=== PATIENT | female | born 1980 ===

== ENCOUNTER 2017-09-17 16:38 | Emergency (ER) | payer OTHER ==
[2016-07-03 22:43] VITALS: BMI 29.5
--- NOTE | 2017-09-17 21:51 | OBHP ---
Datetime: 09/17/2017 21:32 IP Adm Impression: , intrauterine ; No Active Labor; Intact Membranes IP Admit Plan: Observation/Evaluation; Discharge home Admit Comment, IP Provider: Patient's cervical exam performed at approximately 1700 hours 32 y.o. P1, LMP 02/19/17, STEFAN 11/26/17, EGA 30 weeks, c/o abdominal tightenig and worsening pelvic p ressure, throughout the day while at work on _D. (+) AFM;denies LOF, VB. Last had sexual intercourse 09/12/17. care: Dr. Lurdes Anthony; no issues to date P Ob: 07/05/16. 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 . 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 No known fam h/o cancer P.E.: as above. WD in NAD. Awake, alert, oriented to time, person and place. Pleasant and cooperat hodan Assessment: 32 y.o P1, 30 weeks; dehydration. Category 1 tracing. Clinically stable. Plan: 1) Discharge home 2) Reviewed S/S PTL 3) Resume p.o. intake of water to the order of half her weight in ounces daily 4) Follow up with Dr. Carrington, Doreen 09/18/17 - as per, and discussed with, Dr. Carrington Pelvic Type - PN: Adequate Extremities - PN: Normal Abdomen - PN: Normal Back - PN: Normal Breast - PN: Not Done Lungs - PN: Normal Heart - PN: Normal Thyroid - PN: Not Done Neurologic - PN: Normal HEENT - PN: Normal General - PN: Normal FHR - Baseline A Provider: 135 Contraction Comments Provider: none Comments, ACOG Physical Exam: Abdomen: Sof.t Gravie. Non tender in all quadrants All other systems reviewed and are negative Gestation - Est Wks by US: 30.0 EGA AdmitDate IP: 30.0 IP Chief Complaint: Other NICHD Variability Prov Fetus A: Moderate 6-25bpm NICHD Accel Fetus A IP Provider: 15X15 FHR Category Provider Fetus A: Category I NICHD Decel Fetus A IP Provider: None Dilatation, Provider: 0 Effacement, Provider: long Station, Provider: N/A Genitourinary Exam: Normal DTRs - PN: Not Done
[2017-09-17 22:55] VITALS: BP 110/72; PULSE 81
== END 2017-09-17 18:42 | disposition home or self-care (01) ==
LOC: C.EROB 16:38
DX: O26.893 Other specified pregnancy related conditions, third trimester (principal); E86.0 Dehydration; Z3A.30 30 weeks gestation of pregnancy

== ENCOUNTER 2017-10-30 17:55 | Observation (INO) | payer OTHER ==
[2016-07-03 22:43] VITALS: BMI 29.5
[2017-10-31 08:59] LABS: BASO % 0.3 % (0.0-2.0); EOS % 0.5 % (0.0-4.0); LYMPH # 2.4 K/uL (1.0-4.3); LYMPH % 26.2 % (20.0-40.0); MEAN CELL VOLUME 84.9 fL (81.0-99.0); MEAN CORPUSCULAR HEMOGLOBIN 29.7 pg (27.0-31.0); MEAN PLATELET VOLUME 8.5 fL (7.2-11.7); MONO # 0.6 K/uL (0.0-0.8); MONO % 6.1 % (0.0-10.0); NEUT # 6.2 K/uL (1.8-7.0); NEUT % 66.9 % (50.0-75.0); NRBC % 0.1 % (0.0-2.0); RBC 4.38 Mil/uL (3.80-5.20); RED CELL DISTRIBUTION WIDTH 13.3 % (11.5-14.5); WHITE BLOOD COUNT 9.2 K/uL (4.8-10.8)
[2017-10-31 09:05] LABS: SQUAMOUS EPITHIAL 4 /hpf (0-5); URINE BACTERIA RARE (<OCC); URINE BILIRUBIN NEGATIVE (NEGATIVE); URINE BLOOD NEGATIVE (NEGATIVE); URINE CALCIUM OXALATE CRYSTALS OCC /hpf (<OCC); URINE CLARITY Clear (Clear); URINE COLOR Yellow (YELLOW); URINE GLUCOSE (UA) 3+ mg/dL (Normal); URINE LEUKOCYTE ESTERASE NEG Leu/uL (Negative); URINE NITRATE NEGATIVE (NEGATIVE); URINE PROTEIN NEGATIVE (NEGATIVE); URINE UROBILINOGEN NORMAL mg/dL (0.2-1.0)
[2017-10-31 09:39] LABS: HEPATITIS B SURFACE AG Negative (NEGATIVE)
[2017-10-31 09:44] LABS: HEPATITIS A IGM NEGATIVE (NEGATIVE); HEPATITIS B CORE AB NEGATIVE (NEGATIVE)
[2017-10-31 09:56] LABS: HEPATITIS C ANTIBODY NEGATIVE (NEGATIVE)
--- NOTE | 2017-10-31 13:31 | OBHP ---
Datetime: 10/30/2017 18:48 IP Adm Impression: , intrauterine ; No Active Labor IP Chief Complaint Other: Decreased MAYCOL on Ultrasound IP Adm Impression Other: Oligohydramnios IP Admit Plan: Observation/Evaluation IP Admit Plan Other: Prolonged monitoring Admit Comment, IP Provider: Patient is a 37 year old at 36 weeks and 1 day with STEFAN ( 8) and LMP (02/19/17) who was sent to the clinic by her provider due to BPP score (6/8) with decrease MAYCOL and decrease movement. Patient denies leakage of fluid, vaginal bleeding and abnormal vagin al discharge. 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 Stable, Afebrile. 2. CEFM 3. Speculum exam and nitrazine test 4. Admit for prolonged observation 5. BPP in the morning 6. Plans discussed with attending . Pt was seen and evaluated with the resident and I agree with the above Extremities - PN: Normal Abdomen - PN: Normal Lungs - PN: Normal Heart - PN: Normal General - PN: Normal Presentation-Admit: Vertex FHR - Baseline A Provider: 140 Membranes, Provider: Intact Contraction Comments Provider: irregular Comments, ACOG Physical Exam: Gen: NAD Cardio: RRR, normal S1, S2 Pulm: CTA bilaterally Abdomen: Soft, Gravid Ext: No cyanosis, no clubbing and no edema EFM: FHR: 140, + ACCELS TOCO: None Gestation - Est Wks by US: 36.1 Pool Provider: Negative Nitrazine Provider: Negative Ferning Provider: Negative EGA AdmitDate IP: 36.1 Vital Signs Provider: Reviewed; Within Normal Limits IP Chief Complaint: Decreased movement; Other NICHD Variability Prov Fetus A: Moderate 6-25bpm NICHD Accel Fetus A IP Provider: 15X15 NICHD Decel Fetus A IP Provider: None Dilatation, Provider: 0 Effacement, Provider: 0 Station, Provider: -3
== END 2017-10-31 10:25 | disposition home or self-care (01) ==
LOC: C.EROB 17:55 → C.4D 21:56
PROVIDERS: ADMIT Obstetrics & Gynecology; ATTEND Obstetrics & Gynecology
DX: O36.8190 Decreased fetal movements, unspecified trimester, not applicable or unspecified (principal); O41.00X0 Oligohydramnios, unspecified trimester, not applicable or unspecified; Z83.3 Family history of diabetes mellitus
CPT/HCPCS: 80074; 81001; 85025; 86592; 86703; 87081; 87491; 87591; G0378

== ENCOUNTER 2017-11-01 13:05 | Emergency (ER) | payer OTHER ==
[2016-07-03 22:43] VITALS: BMI 29.5
== END 2017-11-01 13:25 | disposition home or self-care (01) ==
LOC: C.EROB 13:05
DX: Z36.9 Encounter for antenatal screening, unspecified (principal); Z3A.36 36 weeks gestation of pregnancy

== ENCOUNTER 2017-11-02 16:31 | Emergency (ER) | payer OTHER ==
[2016-07-03 22:43] VITALS: BMI 29.5
[2017-11-02 21:07] VITALS: BP 116/73; PULSE 89; O2SAT 96
== END 2017-11-02 16:59 | disposition home or self-care (01) ==
LOC: C.EROB 16:31
DX: Z36.9 Encounter for antenatal screening, unspecified (principal); Z3A.36 36 weeks gestation of pregnancy

== ENCOUNTER 2017-11-04 17:45 | Emergency (ER) | payer OTHER ==
[2016-07-03 22:43] VITALS: BMI 29.5
--- NOTE | 2017-11-04 19:49 | OBHP ---
Datetime: 11/04/2017 19:47 IP Adm Impression: , intrauterine IP Adm Impression Other: nst reactive IP Admit Plan: Discharge home Admit Comment, IP Provider: patient here for nst for hx of decreased movement NST reactive patient feels the baby move now follow up in am in clinic Extremities - PN: Normal Abdomen - PN: Normal Back - PN: Normal Lungs - PN: Normal Heart - PN: Normal Neurologic - PN: Normal General - PN: Normal EGA AdmitDate IP: 36.6 Vital Signs Provider: Reviewed; Within Normal Limits IP Chief Complaint: Decreased movement FHR Category Provider Fetus A: Category I Datetime: 11/02/2017 16:52 IP Chief Complaint Other: NST FHR - Baseline A Provider: 135 Contraction Comments Provider: none IP Hx Assessment: The History has been Reviewed and is Current NICHD Variability Prov Fetus A: Moderate 6-25bpm NICHD Accel Fetus A IP Provider: 15X15 NICHD Decel Fetus A IP Provider: None
[2017-11-04 23:44] VITALS: PULSE 92; O2SAT 98
== END 2017-11-04 18:30 | disposition home or self-care (01) ==
LOC: C.EROB 17:45
DX: Z36.89 Encounter for other specified antenatal screening (principal)

== ENCOUNTER 2017-11-05 14:19 | Emergency (ER) | payer OTHER ==
[2017-11-05 15:09] VITALS: BMI 30.7
--- NOTE | 2017-11-05 15:30 | OBHP ---
Datetime: 11/05/2017 15:26 IP Adm Impression: Term, intrauterine Admit Comment, IP Provider: at 37weeks came with dec movemen. pt has been followed for lo w george,no ctxws, vb, lof+fm obhx 1 x pmh den med pnv all nkda psh de soch de ve /-2 a/p at 37weeks oligo/dec fm nst bpp cont markus and efm cont close observation Pelvic Type - PN: Adequate Extremities - PN: Normal Abdomen - PN: Normal Back - PN: Normal Breast - PN: Normal Lungs - PN: Normal Heart - PN: Normal Thyroid - PN: Normal Neurologic - PN: Normal HEENT - PN: Normal General - PN: Normal FHR - Baseline A Provider: 120 Contraction Comments Provider: irrg IP Hx Assessment: The History has been Reviewed and is Current EGA AdmitDate IP: 37.0 Vital Signs Provider: Reviewed; Within Normal Limits IP Chief Complaint: Decreased movement NICHD Variability Prov Fetus A: Moderate 6-25bpm NICHD Accel Fetus A IP Provider: 15X15 FHR Category Provider Fetus A: Category I Dilatation, Provider: 2 Effacement, Provider: 60 Station, Provider: -2 Genitourinary Exam: Normal DTRs - PN: Normal
--- NOTE | 2017-11-05 16:18 | US ---
Indication: dec fm/low fluid OB limited/biophysical profile Comparison: None available. Technique: Real-time ultrasound was performed through the pelvis. Findings: There is a single living fetus in cephalic presentation. Posterior placenta. The placenta is not previa. There are no adnexal masses or cysts evident. Cervix length measures approximately 4.1 cm. Measurements and calculations: Fetus has a composite sonographic age of 35 weeks 4 days. This calculation is based on the biparietal diameter, head circumference, abdominal circumference, and femur length. Estimated heart rate 123.5 beats per min. MAYCOL: 8.2 cm, low normal. Estimated weight 2745 g 411.8 g Biophysical profile: movements 2/2 breathing 2/2 tone 2/2 Amniotic fluid 2/2 Total score impression: 05/13 Impression: Single living fetus with a composite sonographic age of 35 weeks 4 days. Estimated heart rate 123.5 beats per min. MAYCOL: 8.2 cm, low normal. Biophysical profile of 8 out of 8.
--- NOTE | 2017-11-05 16:20 | OBDCSUM ---
Datetime: 11/04/2017 18:24 Discharge Comment, Provider: dc home labor ins given pk hyr f/u pmd in 1-2 days Discharge Diagnosis Prov Other: 37week ded fm nst oligo
[2017-11-05 20:47] VITALS: BP 114/72; PULSE 90; TEMP 97.5
--- NOTE | 2017-11-06 13:48 | OBHP ---
Datetime: 11/05/2017 15:26 Admit Comment, IP Provider: at 37weeks came with dec movemen. pt has been followed for lo w george,no ctxws, vb, lof+fm obhx 1 x pmh den med pnv all nkda psh de soch de ve 60/-2 a/p at 37weeks oligo/dec fm nst bpp cont markus and efm cont close observation 16.20 nst reative sono bpp 8 george 8.16 plan dc home labor ins given pk hyr f/u pmd in 1-2 days EGA AdmitDate IP: 37.0
== END 2017-11-05 16:44 | disposition home or self-care (01) ==
LOC: C.EROB 14:19
DX: O36.8130 Decreased fetal movements, third trimester, not applicable or unspecified (principal); Z3A.37 37 weeks gestation of pregnancy

== ENCOUNTER 2017-11-11 18:35 | Emergency (ER) | payer OTHER ==
--- NOTE | 2017-11-11 21:20 | OBHP ---
Datetime: 11/11/2017 21:10 IP Adm Impression Other: nst reactive IP Admit Plan: Discharge home Admit Comment, IP Provider: patient here for nst for hx of decreased movement NST reactive bpp done in offiec today and normal as per patient patient feels the baby move now follow up in am in clinic patient given labor precautions Extremities - PN: Normal Lungs - PN: Normal Heart - PN: Normal General - PN: Normal EGA AdmitDate IP: 37.6 Vital Signs Provider: Reviewed IP Chief Complaint: Decreased movement FHR Category Provider Fetus A: Category I
[2017-11-11 23:13] VITALS: PULSE 96; TEMP 97.2; O2SAT 95
== END 2017-11-11 19:10 | disposition home or self-care (01) ==
LOC: C.EROB 18:35
DX: Z36.89 Encounter for other specified antenatal screening (principal)

== ENCOUNTER 2017-11-25 11:50 | Inpatient (IN) | payer OTHER ==
[2017-11-25] MEDS ORDERED: Lactated Ringer's 1,000 ML IV SCH (14:15)
--- NOTE | 2017-11-25 14:19 | OBADHP ---
Datetime: 11/25/2017 14:09 Admit Comment, IP Provider: chief complaint-rule out rupture of membranes HPI 37 y/o at 39.6 wga sent from [facility] on findings of decrease in amniotic fluid from 10 to 8 i n 4 days Patient states that she felt leaking once but none after that PMH none PSH denies OBGYN HX Social hx denies tobacco,alochol or ilicit drg use Exam see exam section FHT 140S, MOD JOSE, +ACCELS, occ variables noted; decel fro 2 min with waylon at 120s and recovered spontaneously cervix 3-4/70/-2 A/P 37 y/o at 39.6 wga being followed for borderline MAYCOL.MAYCOL 8 TODAY.Membranes clinically in tact.patient noted to have occ variable on tracing and then had a decel. Early labor with irregular ctx Plan-admit discsused with dr carreon Pelvic Type - PN: Adequate Extremities - PN: Normal Abdomen - PN: Normal Back - PN: Normal Lungs - PN: Normal Heart - PN: Normal Neurologic - PN: Normal General - PN: Normal Weight - Estimated: 3200 Presentation-Admit: Vertex FHR - Baseline A Provider: 140 Contraction Comments Provider: irregular ctx Gestation - Est Wks by US: 39.6 IP Hx Assessment: The History has been Reviewed and is Current Vital Signs Provider: Reviewed; Within Normal Limits IP Chief Complaint: Decreased movement NICHD Variability Prov Fetus A: Moderate 6-25bpm NICHD Accel Fetus A IP Provider: 15X15 NICHD Decel Fetus A IP Provider: Variable Dilatation, Provider: 3-4 Effacement, Provider: 70 Station, Provider: -2 Genitourinary Exam: Normal DTRs - PN: Normal EGA AdmitDate IP: 39.6 IP Adm Impression: Term, intrauterine IP Admit Plan: Admit to unit; Initiate labor induction protocol Datetime: 11/11/2017 21:10 IP Adm Impression Other: nst reactive FHR Category Provider Fetus A: Category I Datetime: 11/05/2017 15:26 Breast - PN: Normal Thyroid - PN: Normal HEENT - PN: Normal Datetime: 11/02/2017 16:52 IP Chief Complaint Other: NST Datetime: 10/30/2017 18:48 IP Admit Plan Other: Prolonged monitoring Membranes, Provider: Intact Comments, ACOG Physical Exam: Gen: NAD Cardio: RRR, normal S1, S2 Pulm: CTA bilaterally Abdomen: Soft, Gravid Ext: No cyanosis, no clubbing and no edema EFM: FHR: 140, + ACCELS TOCO: None Pool Provider: Negative Nitrazine Provider: Negative Ferning Provider: Negative
[2017-11-25 14:33] LABS: BASO # 0.1 K/uL (0.0-0.2); BASO % 1.3 % (0.0-2.0); EOS % 0.4 % (0.0-4.0); LYMPH # 2.3 K/uL (1.0-4.3); LYMPH % 23.9 % (20.0-40.0); MEAN CORPUSCULAR HEMOGLOBIN 29.6 pg (27.0-31.0); MEAN CORPUSCULAR HGB CONC 34.8 g/dL (33.0-37.0); MEAN PLATELET VOLUME 8.6 fL (7.2-11.7); MONO # 0.6 K/uL (0.0-0.8); MONO % 6.8 % (0.0-10.0); NEUT # 6.4 K/uL (1.8-7.0); NEUT % 67.6 % (50.0-75.0); RBC 4.74 Mil/uL (3.80-5.20); RED CELL DISTRIBUTION WIDTH 13.6 % (11.5-14.5); WHITE BLOOD COUNT 9.4 K/uL (4.8-10.8)
[2017-11-25 14:37] LABS: SQUAMOUS EPITHIAL < 1 /hpf (0-5); URINE BACTERIA RARE (<OCC); URINE BILIRUBIN NEGATIVE (NEGATIVE); URINE BLOOD NEGATIVE (NEGATIVE); URINE CLARITY Clear (Clear); URINE COLOR Yellow (YELLOW); URINE GLUCOSE (UA) 1+ mg/dL (Normal); URINE LEUKOCYTE ESTERASE NEG Leu/uL (Negative); URINE NITRATE NEGATIVE (NEGATIVE); URINE PROTEIN NEGATIVE (NEGATIVE); URINE UROBILINOGEN NORMAL mg/dL (0.2-1.0)
[2017-11-25 14:46] LABS: ALB/GLOB RATIO 1.2 (1.0-2.1); ALBUMIN 4.1 g/dL (3.5-5.0); ALT/SGPT 12 U/L (9-52); AST/SGOT 23 U/L (14-36); BLOOD UREA NITROGEN 8 mg/dL (7-17); CALCIUM 9.9 mg/dl (8.6-10.4); GFR AFRICAN-AMERICAN > 60; GFR NON-AFRICAN AMERICAN > 60
[2017-11-25] MEDS ORDERED: Oxytocin 30 UNIT 30 UNITS/500 ML BAG IV SCH (15:00)
[2017-11-25] MEDS ORDERED: Bupivacaine HCl/FentaNYL Cit 100 ML EPI ONE (15:16)
[2017-11-25] MEDS ORDERED: Oxytocin 30 UNIT 30 UNITS/500 ML BAG IV ONE (15:45)
[2017-11-25] MEDS ORDERED: Bupivacaine HCl 0.25% PF (10 ml) Inj ONE (18:06)
[2017-11-25] MEDS ORDERED: Oxycodone/Acetaminophen 5/325 mg Tab PO PRN (21:15)
[2017-11-25] MEDS ORDERED: Tdap Vaccine 0.5 ml Vial (10-64 yrs) IM ONE (21:15)
[2017-11-26] MEDS: Benzocaine/Menthol 20%-0.5% Topical Spray (60 ml) TOP PRN (00:20)
[2017-11-26 07:43] LABS: BASO % 0.1 % (0.0-2.0); EOS % 0.5 % (0.0-4.0); HEMOGLOBIN 12.5 g/dL (11.0-16.0); LYMPH # 1.9 K/uL (1.0-4.3); LYMPH % 19.1 % (20.0-40.0); MEAN CORPUSCULAR HEMOGLOBIN 29.8 pg (27.0-31.0); MEAN CORPUSCULAR HGB CONC 34.7 g/dL (33.0-37.0); MEAN PLATELET VOLUME 8.6 fL (7.2-11.7); MONO # 0.5 K/uL (0.0-0.8); MONO % 4.9 % (0.0-10.0); NEUT # 7.4 K/uL (1.8-7.0); NEUT % 75.4 % (50.0-75.0); RBC 4.18 Mil/uL (3.80-5.20); RED CELL DISTRIBUTION WIDTH 13.6 % (11.5-14.5); WHITE BLOOD COUNT 9.9 K/uL (4.8-10.8)
[2017-11-26] MEDS ORDERED: Tdap Vaccine 0.5 ml Vial (10-64 yrs) IM ONE (08:00)
[2017-11-26 09:01] VITALS: RESP 18; O2SAT 98
[2017-11-26] MEDS: Multiple Vitamins Tab PO SCH (10:24)
--- NOTE | 2017-11-26 17:50 | CP.PCM.PN ---
Subjective - Date & Time of Evaluation Date of Evaluation: 11/26/17 Time of Evaluation: 17:47 - Subjective Subjective: Patient denies any acute complaints. Pain is well controlled with Motrin. She is ambulating, voiding, tolerating regular diet. Currently breast feeding. Objective - Vital Signs/Intake and Output Vital Signs (last 24 hours): Temp Pulse Resp BP Pulse Ox 97.7 F 95 H 18 113/71 98 11/26/17 08:00 11/26/17 08:00 11/26/17 08:00 11/26/17 08:00 11/26/17 08:00 - Medications Medications: Current Medications Acetaminophen (Tylenol 325mg Tab) 650 mg PO Q6 PRN PRN Reason: Pain, Mild (1-3) Benzocaine/Menthol (Dermoplast 20%-0.5%) 0 ml TOP PRN PRN PRN Reason: Perineal Discomfort Last Admin: 11/26/17 00:20 Dose: 0.5 ml Docusate Sodium (Colace) 100 mg PO BID [facility] Last Admin: 11/26/17 10:24 Dose: 100 mg Ferrous Sulfate (Feosol) 325 mg PO DAILY [facility] Last Admin: 11/26/17 10:26 Dose: Not Given Hydrocortisone (Anusol-Hc) 25 mg RC BID [facility] Last Admin: 11/26/17 10:25 Dose: 25 mg Lactated Ringer's (Lactated Ringer's) 1,000 mls @ 125 mls/hr IV .Q8H [facility] Last Admin: 11/25/17 15:04 Dose: 125 mls/hr Oxytocin (Pitocin) 30 units in 500 mls @ 2 mls/hr IV .Q24H [facility]; 0.002 UNIT/MIN PRN Reason: Protocol Last Admin: 11/25/17 15:05 Dose: 2 mls/hr Ibuprofen (Motrin Tab) 600 mg PO Q6 PRN PRN Reason: Pain, Mild (1-3) Last Admin: 11/26/17 14:03 Dose: 600 mg Multivitamins (Hexavitamin) 1 tab PO DAILY [facility] Last Admin: 11/26/17 10:24 Dose: 1 tab Oxycodone/Acetaminophen (Percocet 5/325 Mg Tab) 1 tab PO Q4H PRN PRN Reason: Pain, moderate (4-7) Stop: 11/28/17 21:16 - Labs Labs: 11/26/17 07:02 11/25/17 14:29 - Constitutional Appears: Well, No Acute Distress - Head Exam Head Exam: ATRAUMATIC, NORMOCEPHALIC - Eye Exam Eye Exam: Normal appearance - ENT Exam ENT Exam: Mucous Membranes Moist - Respiratory Exam Respiratory Exam: NORMAL BREATHING PATTERN - Cardiovascular Exam Cardiovascular Exam: REGULAR RHYTHM - GI/Abdominal Exam GI & Abdominal Exam: Soft - Rectal Exam Rectal Exam: Hemorrhoids - Exam External exam: NORMAL EXTERNAL EXAM - Extremities Exam Extremities Exam: Normal Inspection - Psychiatric Exam Psychiatric exam: Normal Affect, Normal Mood - Skin Skin Exam: Normal Color, Warm Assessment and Plan - Assessment and Plan (Free Text) Assessment: s/p spontaneous vaginal delivery PPD#1 Plan: Continue routine management. Anticipate discharge home tomorrow
[2017-11-26] MEDS ORDERED: Magnesium Hydroxide Susp 30 ml UD PO ONE (20:00)
[2017-11-27 08:44] VITALS: BP 112/79; PULSE 95; TEMP 97.9
[2017-11-27] MEDS: Multiple Vitamins Tab PO SCH (11:24)
[2017-11-27] MEDS: Benzocaine/Menthol 20%-0.5% Topical Spray (60 ml) TOP PRN (11:24)
== END 2017-11-27 16:15 | disposition home or self-care (01) | DRG 775 ==
LOC: C.EROB 11:50 → C.4D 13:56 → C.4M 23:30
PROVIDERS: ADMIT Obstetrics & Gynecology; ATTEND Obstetrics & Gynecology
PROC: 10E0XZZ Delivery of Products of Conception, External Approach (ICD-10-PCS; principal; 2017-11-25)
DX: O36.8130 Decreased fetal movements, third trimester, not applicable or unspecified (principal); Z3A.39 39 weeks gestation of pregnancy; Z37.0 Single live birth